=== PATIENT | male | born 1980 | race African-American/Black ===

== ENCOUNTER 2020-05-19 02:17 | Emergency (ER) | payer OTHER ==
[~2020-05-19] VITALS: Ht 193 cm; Wt 110.6 kg
[2020-05-19 03:04] LABS: Basophils # (auto) 0 10 ^3/uL (0-0.2); Basophils % (auto) 0.5 % (0.0-2.0); Eosinophils # (auto) 0 10 ^3/uL (0-0.8); Eosinophils % (auto) 0.6 % (0.0-7.0); Hemoglobin 15.7 g/dL (13.5-17.5); Lymphocytes # (auto) 1.8 10 ^3/uL (0.4-5.4); Lymphocytes % (auto) 31.1 % (10.0-50.0); Mean Corpuscular Hemoglobin 30.8 pg (28.0-32.0); Mean Corpuscular Volume 90.5 fL (80.0-100.0); Monocytes # (auto) 0.6 10 ^3/uL (0-1.3); Monocytes % (auto) 10.8 % (0.0-12.0); Neutrophils # (auto) 3.3 10 ^3/uL (1.6-8.6); Nucleated Red Blood Cells % 0.1 %; Platelet Count (auto) 269 10^3/uL (140-450); Red Blood Cells 5.09 10^6/uL (4.5-5.90); Red Cell Distribution Width 13.5 % (11.8-14.3); White Blood Cell 5.9 10^3/uL (4.4-10.8)
[2020-05-19 03:22] LABS: INR 0.97 (0.9-1.15); Partial Thromboplastin Time 24.5 sec (23.0-31.2)
[2020-05-19 03:23] LABS: Anion Gap 4 (5-15); Blood Urea Nitrogen 24 mg/dL (7-18); Calcium 8.4 mg/dL (8.5-10.1); Carbon Dioxide 25 mmol/L (21-32); Chloride 109 mmol/L (98-107); Glucose 94 mg/dL (74-106); Magnesium 2.8 mg/dL (1.6-2.6); Potassium 4.2 mmol/L (3.5-5.1); Sodium 138 mmol/L (136-145)
[2020-05-19 03:31] LABS: Alanine Aminotransferase 46 U/L (16-61); Albumin 3.9 g/dL (3.4-5.0); Alkaline Phosphatase 73 U/L (45-117); Aspartate Aminotransferase 37 U/L (15-37); BUN/Creatinine Ratio 15.6; Bilirubin, Total 0.3 mg/dL (0.2-1.0); GFR African American 66 mL/min; GFR Non-African American 54 mL/min; Total Protein 7.2 g/dL (6.4-8.2)
[2020-05-19 04:15] LABS: Urine Bacteria NONE SEEN /hpf (None Seen); Urine Blood Negative /uL (Negative); Urine Specific Gravity 1.029 (1.001-1.035); Urine WBC <1 /hpf (0 - 3)
[2020-05-19 05:00] VITALS: BP 136/90
== END 2020-05-19 05:29 | disposition home or self-care (01) ==
LOC: EDBD 02:17 → EEVIPCON 02:36 → ER 02:36
DX: R07.89 Other chest pain (principal); N28.9 Disorder of kidney and ureter, unspecified
CPT/HCPCS: 36415; 71045; 80053; 81001; 83735; 83880; 84443; 84484; 85025; 85610; 85730; 93005; 99291